=== PATIENT | female | born 2000 | race Caucasian/White ===

== ENCOUNTER → 2022-10-17 | Outpatient (CLI) | payer BC, MEDICAID ==
[~2022-10-17] MED LIST: ASHLYNA1 TAB PO; DESYREL 100MG100 MG PO; INTUNIV2 MG PO; NO HOME MEDICATIONS; PRIL40 PO; VISTARIL 2525 MG/CAP PO
== END ==
LOC: COL.RAD 14:00
DX: R10.11 Right upper quadrant pain (principal); R11.0 Nausea

== ENCOUNTER 2022-10-22 12:03 | Emergency (ER) | payer BC, MEDICAID ==
[~2022-10-22] VITALS: Ht 170.2 cm; Wt 75.0 kg
[2022-10-22 12:03] VITALS: TEMP 98.9
[~2022-10-22 12:03] MED LIST changes: -DESYREL 100MG100 MG PO
[2022-10-22 12:55] LABS: ALBUMIN 4.4 gm/dL (3.5-5.0); BILIRUBIN,TOTAL 1.4 mg/dL (0.2-1.2); C-REACTIVE PROTEIN 0.61 mg/dL (0.00-0.50); CREATININE, serum 0.99 mg/dL (0.57-1.11); POTASSIUM 4.3 mmol/L (3.5-4.5); TOTAL PROTEIN 8.4 gm/dL (6.2-8.1)
[2022-10-22 13:01] LABS: COLLECTION METHOD CLEAN CATCH
[2022-10-22 13:03] LABS: BASO # 0.1 K/mm3 (0.0-0.2); BASO % 0.5 % (0.0-2.0); EOS # 0.3 K/mm3 (0.0-0.7); EOS % 2.8 % (0.0-4.0); GRAN % 52.8 % (42.2-75.2); HEMATOCRIT 35.4 % (35.0-45.0); HEMOGLOBIN 11.8 g/dl (12.0-15.0); LYMPH # 3.4 K/mm3 (1.2-3.4); LYMPH % 36.1 % (20.0-51.0); MEAN CELL VOLUME 89 fl (80.0-95.0); MEAN CORPUSCULAR HEMOGLOBIN 30 pg (26-32); MEAN CORPUSCULAR HGB CONC 33 g/dl (33.0-37.0); MEAN PLATELET VOLUME 9.9 fl (7.4-10.4); MONO # 0.7 K/mm3 (0.1-0.6); MONO % 7.6 % (1.7-9.3); PLATELET COUNT 267 K/mm3 (130-400); RED BLOOD COUNT 3.96 M/mm3 (4.10-5.30); REDCELL DISTRIBUTION WIDTH-CV 12.7 % (11.5-14.5)
[2022-10-22 13:12] LABS: URINE APPEARANCE Clear (CLEAR/HAZY); URINE COLOR Yellow (YELLOW)
[2022-10-22 13:13] LABS: PH 6.5 (5.0-8.5); URINE BLOOD Negative (NEGATIVE); URINE GLUCOSE Negative (NEGATIVE); URINE KETONE Negative (NEGATIVE); URINE NITRATE Negative (NEGATIVE); URINE PROTEIN(semi-quant) Negative (NEGATIVE); URINE UROBILINOGEN 0.2 E.U/dL (0.2-1.0)
[2022-10-22 13:16] LABS: MUCOUS Present (NOT PRESENT); SQUAMOUS EPITHELIAL None Seen /hpf (0-10); URINE BACTERIA Rare /hpf (NONE SEEN); URINE RBC 0-2 /hpf (0-2)
[2022-10-22 13:16] LABS: PROLACTIN 12.2 ng/mL (5.18-26.53); TSH w REFLEX 4.049 uIU/mL (0.350-4.940)
[2022-10-22 13:18] LABS: TRICYCLIC ANTIDEPRESS URINE NEGATIVE
[2022-10-22] MEDS ORDERED: DESYREL 100MG100 MG PO (13:35)
[2022-10-22 13:55] VITALS: BP 122/72; PULSE 75
== END 2022-10-22 13:55 | disposition home or self-care (01) ==
LOC: COL.ER 12:03
PROVIDERS: Emergency Medicine
DX: R25.9 Unspecified abnormal involuntary movements (principal); R10.13 Epigastric pain; G47.00 Insomnia, unspecified; E80.7 Disorder of bilirubin metabolism, unspecified; D64.9 Anemia, unspecified; Z79.899 Other long term (current) drug therapy
CPT/HCPCS: J7030

== ENCOUNTER 2023-04-08 08:37 | Emergency (ER) | payer BC, MEDICAID ==
[~2023-04-08] VITALS: Ht 152.4 cm; Wt 75.0 kg
[~2023-04-08 08:37] MED LIST changes: +DESYREL 100MG100 MG PO
[2023-04-08 08:41] VITALS: BP 124/79; PULSE 98
== END 2023-04-08 09:50 | disposition home or self-care (01) ==
LOC: COL.ER 08:37
DX: Z57.39 Occupational exposure to other air contaminants (principal); Z28.311 Partially vaccinated for COVID-19